=== PATIENT | female | born 1950 | race Caucasian/White ===

== ENCOUNTER 2018-12-24 02:34 | Inpatient (IN) ==
[2018-12-24] MEDS ORDERED: ZOFRAN IV ONE (04:09)
[2018-12-24] MEDS ORDERED: NS 1,000 ML IV ONE ×3 (04:09→08:47)
[2018-12-24] MEDS ORDERED: MORPHINE IV ONE (04:09)
--- NOTE | 2018-12-24 04:30 | PROVIDER DOCUMENTATION ---
HPI-General Adult - General Chief Complaint: Abdominal Pain Stated Complaint: abdominal pain Time Seen by Provider: 12/24/18 04:00 Source: patient, family Allergies/Adverse Reactions: Patient Allergies Allergy/AdvReac Type Severity Reaction Status Date / Time Sulfa (Sulfonamide Allergy ITCHING Verified 08/27/18 15:01 Antibiotics) Home Medications: Home Medication List Medication Instructions Recorded Confirmed Last Taken Type Cyclobenzaprine [Flexeril] 10 mg PO QPM 08/27/18 08/27/18 08/26/18 History 10 mg Hydrocodone/Acetaminophen [[place] 1 each PO 2-4XDAY PRN PRN 08/27/18 08/27/18 08/26/18 History 10-325 Tablet] 1 po Trazodone [Desyrel] 100 mg PO QHS 08/27/18 08/27/18 08/26/18 History 100 mg - History of Present Illness -Gen Adult Nature of Presenting Problems: 68 y/o F presents to the ED complaining of abdominal pain. States this began earlier today and is crampy in her LLQ. No fever, no diarrhea, has been nauseated and had multiple bouts of emesis. Last BM 2 days ago. States this feels like her prior obstructions. Has colon cancer and is currently undergoing immunotherapy, no chemo or radiation recently. Review of Systems - Adult - REVIEW OF SYSTEMS - ADULT Constitutional: reports: no symptoms reported Eyes: reports: no symptoms reported Ears, Nose, Mouth & Throat: reports: no symptoms reported Cardiovascular: reports: no symptoms reported Respiratory: reports: no symptoms reported Gastrointestinal: reports: abdominal pain, nausea, vomiting. denies: diarrhea Genitourinary: reports: no symptoms reported Musculoskeletal: reports: no symptoms reported Integumentary: reports: no symptoms reported Neurological: reports: no symptoms reported Psychiatric: reports: no symptoms reported Endocrine: reports: no symptoms reported Hematologic/Lymphatic: reports: no symptoms reported Allergic/Immunologic: reports: no symptoms reported All Other Systems: Reviewed and Negative Past History - Adult - PAST MEDICAL HISTORY-ADULT Review of Records: reports: Old Records Reviewed, Nursing Assessment Review, Medications Reviewed, Social history reviewed & non-contributory. Major Childhood Illnesses: reports: denies history Cardiovascular: reports: denies history Respiratory: reports: denies history Gastrointestinal: reports: cancer (colon), other (constipation) Obstetrical/Gynecological: reports: denies history Genitourinary: reports: denies history Musculoskeletal: reports: denies history Neurological: reports: denies history Endocrine/Immune: reports: denies history Other Conditions: reports: denies history - PRIOR SURGERIES/PROCEDURES Surgical/Procedure History: reports: reviewed, not pertinent - IMMUNIZATION STATUS Childhood Immunizations: See Nurse Assessment Flu Vaccine: See Nurse Assessment - FAMILY HISTORY Family History: reviewed, not pertinent Physical Exam-General - PHYSICAL EXAM-ADULT Initial Vital Signs Reviewed: Yes - CONSTITUTIONAL General Appearance: appears well, alert, mild distress - EYES Eyes: PERRL/EOMI - HEAD, EARS, NOSE, MOUTH & THROAT HENMT: normocephalic/atraumatic, moist mucous membranes, normal ENT inspection - NECK Neck: non-tender, full range of motion, supple - RESPIRATORY Respiratory: chest non-tender, lungs clear, normal breath sounds - CARDIOVASCULAR Cardiovascular: normal peripheral pulses, regular rate, rhythm, no edema, no JVD - GASTROINTESTINAL (ABDOMEN) Abdominal Exam: normal bowel sounds, soft, distended, tenderness (moderate LLQ ttp) - MUSCULOSKELETAL Back Exam: normal inspection, no CVA tenderness, no vertebral tenderness Extremity: normal range of motion, non-tender, no pedal edema - SKIN Integumentary: normal color, normal turgor, warm/dry - NEUROLOGIC Neurologic: grossly normal, no motor/sensory deficits - PSYCHIATRIC Psych/Mental Status: normal mood/affect, normal thought content, normal thought process, oriented x 3 Progress - PLAN OF CARE/RESULTS Progress/Plan/Lab Results: Vital Signs - 8 hr 12/24/18 02:51 Temperature 97.6 F Pulse Rate 126 H Respiratory Rate 18 Blood Pressure 141/77 O2 Sat by Pulse Oximetry 98 Orders Category Date Time Status IV Insertion ORDERED Care 12/24/18 04:[address] ABD/PELVIS W/IV CONT ONLY [CT] Stat Exams 12/24/18 04:09 Ordered CBC WITH DIFF [HEME] Stat Lab 12/24/18 04:09 Uncollected COMPREHENSIVE METABOLIC PANEL [CHEM] Stat Lab 12/24/18 04:09 Uncollected LIPASE [CHEM] Stat Lab 12/24/18 04:10 Uncollected URINALYSIS W/POSS RFLX CULT [URINALYSIS] Stat Lab 12/24/18 04:09 Uncollected 0.9% Sodium Chloride Inj [Ns] 1,000 ml Med 12/24/18 04:09 Active IV 999 mls/hr Morphine Med 12/24/18 04:09 Discontinued 4 mg IV NOW ONE Ondansetron [Zofran] Med 12/24/18 04:09 Discontinued 4 mg IV NOW ONE abdominal pain will further evaluate for causes including but not limited to obstruction, colitis, diverticulitis, pancreatitis, uti, Result Diagrams: 12/24/18 05:11 12/24/18 05:11 - REASSESSMENT Reassessment #1 Status: improving (pain improved no emesis in the ED. Discussed SBO and need for NG with pt and pt refuses NG. Will admit for further evaluation and treatment. Discussed case with Hospitalist, who will see and admit pt.) - CT/MRI 1 CT Study: Abdomen, Pelvis Impression: Abnormal (per radiologist read: "high grade distal small bowel obstruction") Departure - Departure Date of Disposition Decision: 12/24/18 Time of Disposition Decision: 06:53 DIAGNOSIS: Small bowel obstruction Disposition: ADMITTED INPATIENT 09 Certified Medical Emergency: Emergent Condition: Fair - Critical Care Note This patient required my direct & personal management of CC.: No Attestation - Physician/ MARYANNE Attestation Patient care was provided by Advanced Practice Provider:: No The physician spent face to face time with patient:: Yes Advanced Practice Provider documentation review:: Supervising physician onsite and consulted in the evaluation and care of this patient. The physician did have a face to face encounter with the patient.
[2018-12-24 05:47] LABS: AGAP 16; ALB/GLOB RATIO 1.2; ALBUMIN 3.5 g/dL (3.5-5.0); ALKALINE PHOSPHATASE 122 U/L (32-104); BUN 9 mg/dL (8-22); CALCIUM 8.7 mg/dL (8.8-10.2); CHLORIDE 100 mmol/L (98-107); COSMO 282; CREATININE 0.7 mg/dL (0.5-0.9); ESTIMATED GFR > 60; GLUCOSE 138 mg/dL (70-104); GOT 18 U/L (10-30); POTASSIUM 2.8 mmol/L (3.5-5.1); SODIUM 141 mmol/L (136-145); TCO2 25 mmol/L (25-35); TOTAL BILIRUBIN 0.55 mg/dL (0.20-1.00); TOTAL PROTEIN 6.4 g/dL (6.3-8.3)
[2018-12-24 05:48] LABS: GPT 11 U/L (10-36)
[2018-12-24 05:54] LABS: BASO# 0.02 X1000 (0.0-0.2); BASO% 0.2 % (0.0-0.8); EOS# 0.03 X1000 (0.0-0.7); EOS% 0.3 % (0.0-10.0); HEMATOCRIT 37.3 % (37.0-47.0); HEMOGLOBIN 13.2 g/dL (12.0-16.0); IMM GRAN# 0.02 X1000 (0.0-0.04); IMM GRAN% 0.2 % (0.0-0.5); LYMPH% 4.5 % (20.5-51.1); MCH 31.9 PG (27-31); MCHC 35.4 g/dL (33-37); MCV 90.1 FL (81-99); MONO# 0.37 X1000 (0.11-0.59); MONO% 3.3 % (1.7-9.3); MPV 9.2 FL (7.4-10.4); NEUT# 10.19 X1000 (1.4-6.5); NEUT% 91.5 % (42.2-75.2); PLT 177 X1000 (130-400); RBC 4.14 XMIL (4.2-5.4); RDW 14.8 % (11.5-14.5); WBC 11.13 X1000 (4.8-10.8)
--- NOTE | 2018-12-24 07:26 | Diag Imaging Result Doc PS360 ---
CT ABD/PELVIS W/IV CONT ONLY - 12/24/2018 INDICATION: abdominal pain with prior obstructions COMPARISON: None FINDINGS: The lung bases are clear and the heart size is normal. There is a high-grade distal small bowel obstruction. The transition point appears to be in the pelvis. See image #[id number]. Fluid-filled small bowel is dilated up to 5 cm. The colon is mostly collapsed although there is stool throughout the colon. No peritoneal free fluid. There is a small oval encapsulated simple fluid collection at the left-sided retroperitoneum. This measures 4.1 x 2.8 cm. This does not appear inflamed. This is just inferior to the left renal perinephric fascia, and adjacent to the left psoas muscle and quadratus lumborum. There is moderate fatty change of the liver. There are cholecystectomy clips. There is mild splenomegaly. The spleen measures 13 x 7.3 cm. There is some left renal scarring. Otherwise both kidneys enhance normally. The pancreas and adrenals are normal. There is mild aneurysmal dilation of the aorta at the hiatus measuring about 3.4 cm. There is severe vascular disease of the abdominal aorta and its branches. There are multiple laminectomy and fusion changes in the lumbar spine. Essentially the entire spine is fused here. Other bony structures are intact. IMPRESSION: 1. Distal high-grade small bowel obstruction. The transition point appears to be in the pelvis although the reason is unclear. 2. Small cystic-appearing fluid collection at the left-sided retroperitoneum. Significance is uncertain. 3. Mild aneurysmal dilation of the aorta. Severe vascular disease. 4. Hepatic steatosis. This exam was performed using automated exposure control, adjustment of mA or kV according to patient size, and/or use of iterative reconstruction technique Electronically signed by Ramin Galindo 12/24/2018 7:23 AM
[2018-12-24] MEDS ORDERED: ZOFRAN IV PRN (08:47)
[2018-12-24] MEDS ORDERED: PROTONIX IV SCH (09:00)
[2018-12-24] MEDS ORDERED: SODIUM CHLORIDE 0.9% INJ SCH (09:00)
[2018-12-24] MEDS ORDERED: DUONEB (A & A) INH PRN (09:40)
[2018-12-24 09:41] LABS: URINE SOURCE CLEAN CATCH
[2018-12-24] MEDS ORDERED: LOVENOX SUBQ SCH (09:45)
[2018-12-24] MEDS ORDERED: NICODERM PATCH TD SCH (09:45)
[2018-12-24 09:50] LABS: BILIRUBIN URINE NEGATIVE (NEGATIVE); BLOOD URINE NEGATIVE (NEGATIVE); COLOR YELLOW; GLUCOSE URINE NEGATIVE (NEGATIVE); KETONE URINE NEGATIVE (NEGATIVE); LEUKOCYTES URINE TRACE (NEGATIVE); NITRITE URINE NEGATIVE (NEGATIVE); PH URINE 6.5; PROTEIN URINE 30 mg/dL (NEGATIVE); TURBIDITY URINE CLEAR (CLEAR); UROBILINOGEN URINE 2 mg/dL (NORMAL)
[2018-12-24 09:52] LABS: UR EPITHELIAL CELLS <10 /HPF (<10); URINE BACTERIA 1+ /HPF; URINE RBC <10 /HPF (<10)
[2018-12-24] MEDS: POTASSIUM CHLORIDE 20 MEQ/SWI 20 MEQ/100 ML IVPB IV SCH ×2 (10:12→14:15)
--- NOTE | 2018-12-24 10:37 | HISTORY AND PHYSICAL ---
CHIEF COMPLAINT: Abdominal pain. HISTORY OF PRESENT ILLNESS: Ms. Sena is a 68-year-old female with a history of stage III lung cancer followed by Dr. Calhoun in [place]. She also has a history of colon cancer, nicotine dependence, chronic back pain on narcotic therapy, who presents with abrupt onset of abdominal pain that began at around midnight. The patient is an extremely poor historian. at the bedside is able to tell us that she woke up with abdominal pain, and they tried suppositories and Fleet's enema without success, as this has apparently happened multiple times in the past. They brought her to the ER. She had a CT done which showed small bowel obstruction with transition point in the pelvis. Her laboratory data is largely unremarkable with the exception of some mild hypokalemia. Her hemodynamics are stable. She will be admitted for further treatment and evaluation. PAST MEDICAL HISTORY: 1. History of AAA, descending aorta, status post repair. 2. History of lung cancer, followed by Dr. Calhoun in [place]. Takes immunologic therapy now, and last chemotherapy was a few months ago. Radiation was 3 weeks ago. 3. History of colon cancer, status post partial colectomy and colostomy with subsequent reversal. 4. Chronic back pain, on narcotic therapy. 5. Nicotine dependence. PAST SURGICAL HISTORY: She has had appendectomy, cholecystectomy, colon resection, with ostomy and subsequent reversal, tonsillectomy, AAA repair, multiple lumbar spine fusions. SOCIAL HISTORY: She smokes a pack to a pack and a half a day. Denies alcohol or drug use. She is . is at the bedside. FAMILY HISTORY: Noncontributory. REVIEW OF SYSTEMS: Limited 10-point review of systems is obtained and found to be negative with the exception of the HPI. ALLERGIES: Sulfonamides. HOME MEDICATIONS: Have not yet been compiled by the nursing staff. We will adjust those appropriately. Apparently though, per , she only takes OxyContin and Percocet. PHYSICAL EXAMINATION: VITAL SIGNS: Blood pressure is 110/71, heart rate 102, respiratory rate is 20, O2 saturation 99% on room air, temperature 98.6. GENERAL: This is a disheveled and frail appearing 68-year-old female lying in hospital bed, in no acute distress. NEUROLOGICAL: The patient is awake, but she is somewhat lethargic and certainly confused. Unable to give the date or who the president currently is. She does follow commands, however, without focal deficits. HEENT: Head is atraumatic and normocephalic. Pupils are equal and sluggish to light response bilaterally. Oral mucosa is dry. NECK: Trachea is midline. No JVD. CHEST: Diminished at the bases but clear to auscultation bilaterally. CARDIOVASCULAR: Regular rate and rhythm. S1 and S2 noted. No murmurs. GASTROINTESTINAL: Diffusely tender but nondistended. Bowel sounds are hypoactive in all 4 quadrants. Multiple surgical scars noted but no sign of infection. EXTREMITIES: Without edema. Pulses 1+ bilaterally. DIAGNOSTIC DATA: WBC is 11.13, hemoglobin 13.2, hematocrit 37.3, platelet count 177. Sodium 141, potassium 2.8, chloride 100, CO2 is 25, anion gap 16, BUN is 9, creatinine 0.7, glucose 138, calcium 8.7, AST is 18, ALT is 11, alkaline phosphatase 122, lipase 8. UA shows some trace leukocytes and [address] of abdomen and pelvis shows small bowel obstruction with transition point in the pelvis. ASSESSMENT AND PLAN: 1. Small bowel obstruction. The patient refuses NG tube at this time. We will keep her n.p.o. and consult Dr. Guardado. We will continue IV fluids, antiemetics and IV Protonix. Obviously, the pain medicine that she is on at home is not helping and more than likely contributing to her symptoms. However, she has been taking these for multiple years, and abruptly stopping narcotic therapy would possibly be detrimental to the patient. We will check daily abdomen x- rays as well. 2. Hypokalemia. We will check magnesium and replace. 3. History of lung cancer, followed by Dr. Calhoun in [place]. Currently no overt need to consult Hematology/Oncology. However, if anything changes, we will certainly consult [facility]. 4. Nicotine dependence. We have advised the patient to quit smoking. We will write a nicotine patch. Continue cessation education. 5. DVT prophylaxis with Lovenox. Further recommendations to follow. Dictated by BONY Turcios for Alberto Manzanares MD cc: BONY Turcios MD I agree with most components of history, physical, assessment and plan. A separate addendum has been dictated. MTDD
--- NOTE | 2018-12-24 11:26 | Diag Imaging Result Doc PS360 ---
CHEST-PORTABLE - 12/24/2018 INDICATION: h/o lung cancer, dyspnea COMPARISON: None FINDINGS: There is a right chest port in good position. The lungs are clear. Heart size is normal. No pneumothorax or pleural effusion. IMPRESSION: Negative exam. Electronically signed by Ramin Galindo 12/24/2018 11:24 AM
[2018-12-24 12:26] LABS: HEMOGLOBIN A1C 4.4 % (4.8-6.0)
[2018-12-24 14:45] VITALS: BP 119/62
--- NOTE | 2018-12-24 15:05 | HISTORY AND PHYSICAL ---
ADDENDUM: History and physical dictated by nurse practitioner. I agree with most components of history, physical, assessment, and plan. In brief, Ms. Sena is a 68-year-old lady with a past medical history of coronary artery disease requiring stent in 2003, ongoing tobacco abuse with about 1 pack per day smoking history for 50 years, lung cancer status post chemo radiation, the last chemotherapy about 2 months ago and radiation about 3 weeks ago, colorectal cancer status post neoadjuvant chemo resection and adjuvant chemo with subsequent ileocolic anastomosis and internalization of ileostomy in 2009, multiple other abdominal surgeries including hernia repair, aortic aneurysm repair, cholecystectomy, and appendicectomy, comes in with chief complaints of nausea, vomiting, abdominal pain for about 6 hours' duration. The patient has had multiple episodes of small bowel obstruction, at least 4 in the last 2 to 3 years. In the emergency room, CT scan was noted to have a high-grade small bowel obstruction and hospitalist team was consulted for further management. At the time of my evaluation, patient is hemodynamically stable. I have just been informed by patient and her at bedside that the patient has had 2 bowel movements since she has been in the room and during my encounter, patient again goes and passes gas and has a small bowel movement. VITAL SIGNS: Temperature of 98.6 degrees, pulse 105, respiratory rate 20, blood pressure 117/73, saturating 94% on room air. PHYSICAL EXAMINATION: GENERAL: She does not appear in any acute distress. HEENT: Oral cavity is moist. LUNGS: Air entry bilaterally equal. No wheeze, rhonchi, crackles. CARDIOVASCULAR: S1, S2 normal. Mild systolic murmur affecting the left parasternal region around the 4th intercostal space without any rub or gallop. ABDOMEN: Soft. There is generalized tenderness, especially in left lower quadrant. There are multiple scars of previous laparotomies and abdominal surgeries. She has active bowel sounds. No rebound or rigidity. No hepatosplenomegaly. EXTREMITIES: No lower extremity edema. LABS: Suggestive of mild leukocytosis, normal hemoglobin, normal platelet count. Her potassium is 2.8, which is being repleted. ASSESSMENT AND PLAN: 1. Acute small bowel obstruction, likely due to intra-abdominal adhesions and scar tissue formation, especially at the previous ileocolic anastomosis junction in the right lower quadrant. She no longer has any nausea, vomiting, and has had multiple bowel movements, so it looks like her small bowel obstruction is resolving. I will continue to keep her NPO except ice chips and will consult Surgical team if she will need any surgical intervention considering multiple episodes of small bowel obstruction in the last 2 or 3 years. I will continue to replete electrolytes, intravenous fluids, and pain medications as needed. 2. History of lung cancer with recent chemo radiation in 2019, last chemo 2 months ago and last radiation 3 weeks ago; history of colon cancer with neoadjuvant and adjuvant chemo radiation in 2009. She should follow up with her oncologist as outpatient. 3. Nicotine dependence. I counseled the patient about quitting smoking and I will continue nicotine patch. 4. Deep vein thrombosis prophylaxis. Lovenox. 5. Disposition. I will continue to monitor the patient inside the hospital. I will follow up with Surgery's recommendation and will initiate diet accordingly. Plan of care discussed with the patient and her at bedside. All of their questions have been answered. cc: Alberto Manzanares MD
--- NOTE | 2018-12-24 17:00 | DISCHARGE SUMMARY ---
ADMISSION DATE: 12/24/2018 DISCHARGE DATE: 12/24/2018 DISCHARGE CONDITION: Patient left against medical advice. DISCHARGE DISPOSITION: Home with . DISCHARGE DIAGNOSIS: 1. Acute small bowel obstruction with transition point at right lower quadrant likely at the junction of previous ileocolic anastomosis. 2. Hypokalemia. 3. History of lung cancer with recent chemoradiation in 2019 with last chemo 2 months ago and last radiation 3 weeks ago. 4. History of colon cancer with neoadjuvant and adjuvant chemoradiation in 2009. 5. History of multiple small bowel obstructions since 2016 managed nonoperatively. 6. Ongoing tobacco abuse and nicotine dependence. OTHER DIAGNOSIS: 1. History of coronary artery disease requiring stent in 2013 . 2. History of aortic aneurysm repair. 3. History of multiple other abdominal surgeries including cholecystectomy, hysterectomy, appendectomy and hernia repair. VITALS: At the time of discharge temperature 98.5 degrees, pulse 103, respiratory 17, blood pressure 119/62, saturating 94% room air. PHYSICAL EXAMINATION: At the time of discharge I had admitted the patient just a little while ago, at that time she was not in any acute distress. Oral cavity was dry. Air entry was bilaterally equal without any wheeze, rhonchi or crackles. S1, S2 was normal. No murmur or gallop. Abdomen had multiple laparotomy scars. It was soft, mild generalized tenderness, active bowel sound. No lower extremity edema. LAB: Significant lab at the time of discharge, WBC 11,000, hemoglobin 13.2, platelet 177,000, potassium of 2.8 and she was given 40 mEq of potassium. SIGNIFICANT IMAGING: Abdomen pelvis CT had detected aneurysmal dilatation of the aorta, severe vascular disease, distal high-grade small bowel obstruction, hepatic steatosis. DISCHARGE MEDICATION: Patient left against medical advice and perform medication reconciliation could not be done however at home she was listed to be taking trazodone, cyclobenzaprine and [place] 10. HOSPITAL COURSE SUMMARY: Ms. Sena is 68 years old lady with past medical history of lung cancer on chemoradiation, colorectal cancer requiring removal of tumor, transient ileostomy and later on internalization of ileostomy with ileocolic anastomosis in 2009 as per the history who has had multiple small bowel obstruction likely at the ileocolic anastomosis junction over last 2 years requiring multiple hospital admissions at [facility] as well as [facility] who came in with chief complaints of nausea, vomiting and abdominal pain of about 6 hours duration. In the emergency room she was given CAT scan abdomen, pelvis which had detected high-grade distal small-bowel obstruction however patient had refused to get the nasogastric tube. By the time I evaluated the patient her nausea, vomiting had subsided. Her abdominal pain was going down. She had at least 3 bowel movements. I had discussed with the patient and her at bedside about keeping her NPO for a few hours and then starting her on ice chips and later on advancing diet to clear liquid diet to make sure her abdominal pain and obstruction does not recur and they had agreed. She was admitted on the floor. However sometime later I was notified by the nursing team that patient and her wanted to leave against medical advice and she was feeling better. Before I could see them again and explain to them about nature of the illness, prognosis and need for staying inside the hospital so that we could monitor her they had left against medical advice. TIME SPENT: More than 30 minutes. cc: Alberto Manzanares MD
== END 2018-12-24 16:29 | disposition left against medical advice (07) | DRG 390 ==
LOC: ED 02:34 → 4N 08:55
PROVIDERS: ATTEND Internal Medicine
CPT/HCPCS: 71010; 71045; 74177; 80053; 81001; 83036; 83690; 83735; 84443; 85025; 87088; 96361; 96374; 96375; 99285; A9270; C9113; J1650; J2270; J2405; J3480; J7030; Q9967; S0164